=== PATIENT | female | born 1990 | race Caucasian/White ===

== ENCOUNTER 2017-09-16 18:09 | Emergency (ER) | payer MEDICAID, OTHER ==
[~2017-09-16] VITALS: Ht 160 cm; Wt 68.9 kg
[~2017-09-16 18:09] MED LIST: ACYC-114 PO; LORA-445 PO
[2017-09-16] MEDS ORDERED: CEFTRIAXONE 250 MG ONE (18:48)
[2017-09-16] MEDS ORDERED: AZITHROMYCIN 500 MG TABLET ONE (18:48)
[2017-09-16] MEDS ORDERED: KETOROLAC 30 MG/1 ML ONE (18:49)
[2017-09-16] MEDS ORDERED: PHENAZOPYRIDINE 200 MG TABLET ONE (18:55)
[2017-09-16 19:00] LABS: MICROSCOPIC AUTO
[2017-09-16] MEDS ORDERED: CEFTRIAXONE 250 MG IM ONE (19:00)
[2017-09-16] MEDS ORDERED: KETOROLAC 30 MG/1 ML IM ONE (19:00)
[2017-09-16] MEDS ORDERED: PHENAZOPYRIDINE 200 MG TABLET PO ONE (19:00)
[2017-09-16] MEDS ORDERED: AZITHROMYCIN 500 MG TABLET PO ONE (19:00)
[2017-09-16 19:01] LABS: CULTURE INDICATED? YES
[2017-09-16] MEDS ORDERED: TRAZ100T15 PO (19:07)
[2017-09-16] MEDS ORDERED: ARIP2TAB2 PO (19:08)
[2017-09-16 19:30] LABS: HCG UR SG 1.036 (1.003-1.030)
[2017-09-16 20:02] VITALS: BP 107/52
== END 2017-09-16 20:04 | disposition home or self-care (01) ==
LOC: ED 18:50
DX: N30.00 Acute cystitis without hematuria (principal); A64 Unspecified sexually transmitted disease; H10.31 Unspecified acute conjunctivitis, right eye; G43.909 Migraine, unspecified, not intractable, without status migrainosus
CPT/HCPCS: 81001; 81025; 87086; 96372; 99284; J0696; J1885

== ENCOUNTER 2020-03-13 00:22 | Emergency (ER) | payer MEDICAID ==
[~2020-03-13] VITALS: Ht 160 cm; Wt 75.0 kg
[~2020-03-13 00:22] MED LIST changes: +ARIP2TAB2 PO; +TRAZ-175 PO
[2020-03-13 00:32] VITALS: BP 167/90
[2020-03-13] MEDS ORDERED: HYDROcodone/APAP 5/325 TABLET ONE (01:21)
[2020-03-13] MEDS ORDERED: HYDROcodone/APAP 5/325 TABLET PO ONE (01:30)
== END 2020-03-13 01:26 | disposition home or self-care (01) ==
LOC: ED 01:11
DX: H65.02 Acute serous otitis media, left ear (principal); H92.02 Otalgia, left ear; G43.909 Migraine, unspecified, not intractable, without status migrainosus; E87.6 Hypokalemia
CPT/HCPCS: 99283

== ENCOUNTER 2020-04-07 19:41 | Emergency (ER) | payer MEDICAID ==
[~2020-04-07] VITALS: Ht 160 cm; Wt 69.7 kg
[2020-04-07 19:45] VITALS: BP 113/84
[2020-04-07] MEDS ORDERED: DIPH,PERTUSS(ACELL),TET VAC/PF 0.5 ML IM-VACC ONE ×2 (20:00→20:10)
[2020-04-07] MEDS ORDERED: LIDOCAINE-MPF 1%, 5ML INFIL ONE (20:00)
[2020-04-07] MEDS ORDERED: LIDOCAINE-MPF 1%, 5ML ONE (20:09)
[2020-04-07] MEDS ORDERED: NEOSPORIN OINT. PKT 1 PACKET ONE (20:39)
== END 2020-04-07 20:54 | disposition home or self-care (01) ==
LOC: ED 19:55
DX: L03.114 Cellulitis of left upper limb (principal); L02.414 Cutaneous abscess of left upper limb; F17.210 Nicotine dependence, cigarettes, uncomplicated; F15.10 Other stimulant abuse, uncomplicated; R00.0 Tachycardia, unspecified; Z72.9 Problem related to lifestyle, unspecified; K21.9 Gastro-esophageal reflux disease without esophagitis; G43.909 Migraine, unspecified, not intractable, without status migrainosus
CPT/HCPCS: 10060; 90471; 90715; 99283; 99284; 99406

== ENCOUNTER 2020-04-09 14:41 | Emergency (ER) | payer MEDICAID ==
[~2020-04-09] VITALS: Ht 160 cm; Wt 70.9 kg
[2020-04-09 15:38] VITALS: BP 127/85
--- NOTE | 2020-04-09 17:28 | NUR ---
No show when called to revitalize at 1728. First call
--- NOTE | 2020-04-09 17:34 | NUR ---
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 PT LEFT.
== END 2020-04-09 17:36 | disposition left against medical advice (07) ==
LOC: ED 15:00
DX: L02.414 Cutaneous abscess of left upper limb (principal)
CPT/HCPCS: 99281

== ENCOUNTER 2020-04-11 10:30 | Emergency (ER) | payer MEDICAID ==
[~2020-04-11] VITALS: Ht 160 cm; Wt 71.4 kg
[2020-04-11 10:38] VITALS: BP 161/93
== END 2020-04-11 11:18 | disposition home or self-care (01) ==
LOC: ED 11:05
DX: L02.414 Cutaneous abscess of left upper limb (principal); G43.909 Migraine, unspecified, not intractable, without status migrainosus
CPT/HCPCS: 99281